=== PATIENT | female | born 1975 | race Caucasian/White ===

== ENCOUNTER 2016-11-20 22:06 | Emergency (ER) | payer BC ==
[~2016-11-20] VITALS: Ht 157.5 cm; Wt 58.7 kg
[2016-11-20 22:28] VITALS: BP 123/87; PULSE 96; RESP 18; TEMP 98.2; O2SAT 97
[2016-11-20] MEDS ORDERED: LEXA20TA PO (23:42)
[2016-11-20 23:43] VITALS: BP 126/80; PULSE 90; RESP 18; TEMP 98.2; O2SAT 98
[2016-11-21] MEDS ORDERED: SODIUM CHLOR 0.9% 1000 ML INJ 1,000 ML IV ONE ×2 (00:12→00:15)
[2016-11-21] MEDS ORDERED: SODIUM CHLORIDE 0.9% FLUSH 10 ML FLUSH IVF PRN (00:15)
[2016-11-21] MEDS ORDERED: ONDANSETRON HCL 4 MG/2 ML VIAL IVP ONE (00:15)
[2016-11-21 00:46] LABS: AUTOMATED NEUTROPHIL # 8.6 TH/MM3 (1.8-7.7); BASOPHIL # 0.1 TH/MM3 (0-0.2); BASOPHIL % 0.7 % (0.0-2.0); BLOOD, URINE NEG (NEG); EOSINOPHIL # 0.2 TH/MM3 (0-0.4); EOSINOPHIL % 1.8 % (0.0-4.0); GLUCOSE,URINE NEG (NEG); HEMATOCRIT 41.9 % (35.0-46.0); HEMO FLAGS DIFF FINAL; KETONE, URINE NEG (NEG); LYMPH % 4.5 % (9.0-44.0); LYMPHOCYTE # 0.5 TH/MM3 (1.0-4.8); MEAN CORPUSCULAR HEMOGLOBIN 25.7 PG (27.0-34.0); MEAN CORPUSCULAR HGB CONC 33.3 % (32.0-36.0); MONO % 5.6 % (0.0-8.0); NEUT % 87.4 % (16.0-70.0); NITRITE,URINE NEG (NEG); PLATELET COUNT 306 TH/MM3 (150-450); RED BLOOD COUNT 5.44 MIL/MM3 (4.00-5.30); RED CELL DISTRIBUTION WIDTH 14.1 % (11.6-17.2)
[2016-11-21 00:53] LABS: POTASSIUM 4.3 MEQ/L (3.5-5.1)
[2016-11-21 00:54] VITALS: O2SAT 99
[2016-11-21 00:55] VITALS: BP 112/65; PULSE 87; RESP 18; O2SAT 99
[2016-11-21 00:56] LABS: BICARBONATE 27.3 MEQ/L (21.0-32.0); URINE COLOR YELLOW (YELLW/STRAW)
[2016-11-21 00:57] LABS: BACTERIA, URINE RARE /hpf; COMMENT (UR) CULT NOT INDICATED; CULTURE IF INDICATED CULT NOT INDICATED; RBC, URINE 0-2 /hpf (0-3); WBC, URINE 0-2 /hpf (0-5)
[2016-11-21] MEDS ORDERED: PROM25TA5 PO (02:30)
--- NOTE | 2016-11-21 02:30 | PD ---
HPI Chief Complaint: GI Complaint Time Seen by Provider: 00:12 Travel History International Travel<30 days: No Contact w/Intl Traveler<30days: No Traveled to known affect area: No History of Present Illness HPI 41-year-old female presents to the emergency department for complaint of nausea vomiting and diarrhea. Patient states that she thinks she had bad food at [place]. Patient was initially only person in her family with similar symptoms however just prior to arrival to the emergency department patient states that her youngest daughter was starting to have diarrhea and vomiting. Patient has had no fever has had subjective chills. Patient denies hematemesis coffee- ground emesis melena hematochezia. Patient states she's noted some decreased urine output but denies dysuria frequency urgency hematuria or flank pain. Patient denies . Patient has had no recent respiratory illness symptoms. Patient rates pain 0/10 in intensity. Patient is unable to identify exacerbating or alleviating factors. PFSH Past Medical History Narrative Medical Anxiety mitral valve prolapse tubal ligation no tobacco use no alcohol use; nursing notes reviewed Anxiety: Yes Cardiovascular Problems: Yes (MVP) Diminished Hearing: No Tetanus Vaccination: < 5 Years ?: Not LMP: 11-19-16 Tubal Ligation: Yes Past Surgical History Section: Yes Gynecologic Surgery: Yes Social History Alcohol Use: No Tobacco Use: No Substance Use: No Allergies-Medications (Allergen,Severity, Reaction): Coded Allergies: No Known Allergies (Unverified , 11/20/16) Reported Meds & Prescriptions Reported Meds & Active Scripts Active Phenergan (Promethazine HCl) 25 Mg Tab 25 Mg PO Q6H PRN Reported Lexapro (Escitalopram Oxalate) 20 Mg Tab 20 Mg PO DAILY Review of Systems Except as stated in HPI: all other systems reviewed are Neg General / Constitutional: No: Fever HENT: No: Congestion Cardiovascular: No: Chest Pain or Discomfort Respiratory: No: Shortness of Breath Gastrointestinal: Positive: Nausea, Vomiting, Diarrhea, Abdominal Pain (crampy pain prior to vomiting or diarrhea) Genitourinary: No: Urgency, Frequency, Dysuria, Flank Pain Musculoskeletal: No: Myalgias, Arthralgias Skin: No Rash Neurologic: No: Weakness Psychiatric: No: Anxiety Endocrine: No: Heat Intolerance Hematologic/Lymphatic: No: Easy Bruising Physical Exam Narrative GENERAL: Well-developed well-nourished female in no acute distress no respiratory distress SKIN: Warm and dry. HEAD: Normocephalic. EYES: No scleral icterus. No injection or drainage. NECK: Supple, trachea midline. No JVD or lymphadenopathy. CARDIOVASCULAR: Regular rate and rhythm without murmurs, gallops, or rubs. RESPIRATORY: Breath sounds equal bilaterally. No accessory muscle use. GASTROINTESTINAL: Abdomen soft, non-tender, nondistended. MUSCULOSKELETAL: No cyanosis, or edema. BACK: Nontender without obvious deformity. No CVA tenderness. Data Data Last Documented VS Vital Signs Date Time Temp Pulse Resp B/P Pulse Ox O2 Delivery O2 Flow Rate FiO2 11/21/16 02:41 80 18 98 11/21/16 02:33 116/68 Room Air 11/20/16 23:43 98.2 Orders Complete Blood Count With Diff (11/21/16 00:12) Basic Metabolic Panel (Bmp) (11/21/16 00:12) Urinalysis - C+S If Indicated (11/21/16 00:12) Lipase (11/21/16 00:12) Iv Access Insert/Monitor (11/21/16 00:12) Ecg Monitoring (11/21/16 00:12) Oximetry (11/21/16 00:12) Ondansetron Inj (Zofran Inj) (11/21/16 00:15) Sodium Chlor 0.9% 1000 Ml Inj (Ns 1000 M (11/21/16 00:12) Sodium Chloride 0.9% Flush (Ns Flush) (11/21/16 00:15) Ed Urine Pregnancytest Poc (11/21/16 00:12) Sodium Chlor 0.9% 1000 Ml Inj (Ns 1000 M (11/21/16 00:15) Labs Laboratory Tests Test 11/21/16 00:40 White Blood Count 10.0 TH/MM3 Red Blood Count 5.44 MIL/MM3 Hemoglobin 14.0 GM/DL Hematocrit 41.9 % Mean Corpuscular Volume 77.0 FL Mean Corpuscular Hemoglobin 25.7 PG Mean Corpuscular Hemoglobin 33.3 % Concent Red Cell Distribution Width 14.1 % Platelet Count 306 TH/MM3 Mean Platelet Volume 8.1 FL Neutrophils (%) (Auto) 87.4 % Lymphocytes (%) (Auto) 4.5 % Monocytes (%) (Auto) 5.6 % Eosinophils (%) (Auto) 1.8 % Basophils (%) (Auto) 0.7 % Neutrophils # (Auto) 8.6 TH/MM3 Lymphocytes # (Auto) 0.5 TH/MM3 Monocytes # (Auto) 0.6 TH/MM3 Eosinophils # (Auto) 0.2 TH/MM3 Basophils # (Auto) 0.1 TH/MM3 CBC Comment DIFF FINAL Differential Comment Urine Color YELLOW Urine Turbidity CLEAR Urine pH 6.0 Urine Specific Stokes 1.032 Urine Protein TRACE mg/dL Urine Glucose (UA) NEG mg/dL Urine Ketones NEG mg/dL Urine Occult Blood NEG Urine Nitrite NEG Urine Bilirubin NEG Urine Leukocyte Esterase NEG Urine RBC 0-2 /hpf Urine WBC 0-2 /hpf Urine Squamous Epithelial 6-8 /hpf Cells Urine Bacteria RARE /hpf Microscopic Urinalysis Comment CULT NOT INDICATED Sodium Level 140 MEQ/L Potassium Level 4.3 MEQ/L Chloride Level 106 MEQ/L Carbon Dioxide Level 27.3 MEQ/L Anion Gap 7 MEQ/L Blood Urea Nitrogen 28 MG/DL Creatinine 0.74 MG/DL Estimat Glomerular Filtration 87 ML/MIN Rate Random Glucose 117 MG/DL Calcium Level 8.3 MG/DL Lipase 159 U/L MDM Medical Decision Making Medical Screen Exam Complete: Yes Emergency Medical Condition: Yes Medical Record Reviewed: Yes Interpretation(s) CBC & BMP Diagram 11/21/16 00:40 Vital Signs Date Time Temp Pulse Resp B/P Pulse Ox O2 Delivery O2 Flow Rate FiO2 11/21/16 00:55 87 18 112/65 99 Room Air 11/21/16 00:54 99 Room Air 11/20/16 23:43 98.2 90 18 126/80 98 Room Air 11/20/16 23:43 18 11/20/16 22:28 98.2 96 18 123/87 97 Differential Diagnosis Viral syndrome, gastroenteritis, dehydration, food borne illness, colitis Narrative Course IV access obtained specimens collected and sent for resulting patient ordered 2 L of normal saline along with Zofran 4 mg IV for nausea vomiting After IV Zofran no further nausea or vomiting patient noting to feel markedly improved after IV fluid hydration Patient taking oral hydration well without further nausea vomiting and no diarrhea while in the emergency department Patient feels well desirous of being discharged to home. Prescription for Phenergan Diagnosis Primary Impression: Gastroenteritis Additional Impression: Dehydration Referrals: Primary Care Physician call for appointment Patient Instructions: General Instructions Additional Instructions: Follow clear liquid diet for next 12-24 hours advance as tolerated to bland/ Kian diet then regular diet Increase fluid hydration Takes Zofran as prescribed as needed for nausea and/or vomiting Take acetaminophen/Tylenol every 4 hours as needed for fever 100.4F or greater May take ibuprofen/Advil/Motrin every 6-8 hours as needed for fever 100.4 her heart or greater or for pain associated with inflammation Return to the emergency department for pain fever vomiting or any concerns Follow-up with your primary care physician Med/Other Pt SpecificInfo: Prescription(s) given Scripts Promethazine (Phenergan)25 Mg Tab25 Mg PO Q6H PRN (Nausea/Vomiting) #10 TAB Ref 0 Prov:Laura Kimball MD 11/21/16 Disposition: 01 DISCHARGE HOME Condition: Stable Laura Kimball MD Nov 21, 2016 02:30
[2016-11-21 02:33] VITALS: BP 116/68; PULSE 80; RESP 18; O2SAT 99
== END 2016-11-21 02:42 | disposition home or self-care (01) ==
LOC: PHED 22:06
DX: K52.9 Noninfective gastroenteritis and colitis, unspecified (principal); E86.0 Dehydration; Z86.79 Personal history of other diseases of the circulatory system; Z86.59 Personal history of other mental and behavioral disorders
CPT/HCPCS: 80048; 81001; 83690; 84703; 85025; 96361; 96374; 99284; J2405; J7030